=== PATIENT | female | born 1970 | race Two or more races ===

== ENCOUNTER 2017-12-08 11:29 | Outpatient (CLI) | payer OTHER | END 2017-12-08 11:33 | disposition home or self-care (01) | LOC: MAMO-SONO 11:29 | DX: Z12.31 Encounter for screening mammogram for malignant neoplasm of breast (principal); N64.4 Mastodynia; N60.11 Diffuse cystic mastopathy of right breast ==

== ENCOUNTER 2019-12-04 01:42 | Emergency (ER) | payer OTHER ==
[~2019-12-04] VITALS: Ht 170.2 cm; Wt 59.9 kg
[2019-12-04] MEDS ORDERED: SYNTHROID75 MCG (01:59)
[2019-12-04] MEDS ORDERED: CLONAZEPAM0.5 MG (01:59)
[2019-12-04] MEDS ORDERED: KETO10TA2 PO (03:03)
[2019-12-04] MEDS ORDERED: NORFLEX100MG PO (03:03)
== END 2019-12-04 03:15 ==
LOC: ER 01:42
DX: M54.2 Cervicalgia (principal); M62.838 Other muscle spasm

== ENCOUNTER 2022-12-09 11:23 | Outpatient (CLI) | payer OTHER ==
[~2022-12-09 11:23] MED LIST: CLONAZEPAM0.5 MG; KETO10TA2 PO; NORFLEX100MG PO; SYNTHROID75 MCG
== END 2022-12-09 11:31 | disposition home or self-care (01) ==
LOC: SONOGRAMA 11:23
PROVIDERS: ATTEND General Practice
DX: E04.2 Nontoxic multinodular goiter (principal); N20.0 Calculus of kidney